=== PATIENT | female | born 1985 | race Caucasian/White ===

== ENCOUNTER 2024-11-30 18:36 | Emergency (ER) | payer OTHER ==
[~2024-11-30] VITALS: Ht 152.4 cm; Wt 63.5 kg
[2024-11-30 18:55] VITALS: TEMP 98.7
[2024-11-30] MEDS ORDERED: AMOX TR-K CLV1 EAC2 PO (19:05)
[2024-11-30 19:11] VITALS: PULSE 102; RESP 16; O2SAT 100
== END 2024-11-30 19:11 | disposition home or self-care (01) ==
LOC: ER 18:51
DX: L02.415 Cutaneous abscess of right lower limb (principal)
CPT/HCPCS: 99283